=== PATIENT | female | born 1995 | race Caucasian/White ===

== ENCOUNTER 2023-04-04 07:29 | Outpatient (REF) | payer OTHER, SELFPAY ==
[2023-04-06 04:07] LABS: Syphilis Screen Nonreactive (Nonreactive)
[2023-04-06 05:13] LABS: HBsAGNum1 0.32 S/CO (0.00-0.99); HIV AB/AG Nonreactive (Nonreactive); HIV Num 1 0.14 S/CO (0.00-0.99); Hepatitis B Surface Antigen Negative (Negative); ~HepC Num1 0.04 S/CO (0.00-0.79); ~Hepatitis C Antibody Nonreactive (Nonreactive)
== END 2023-04-04 07:30 | disposition home or self-care (01) ==
LOC: HO.LAB 07:29
PROVIDERS: Visit Provider Physician Assistant
DX: Z11.4 Encounter for screening for human immunodeficiency virus [HIV] (principal); N89.8 Other specified noninflammatory disorders of vagina; Z20.2 Contact with and (suspected) exposure to infections with a predominantly sexual mode of transmission
CPT/HCPCS: 36415; 86780; 86803; 87340; 87389

== ENCOUNTER 2023-08-30 01:44 | Emergency (ER) | payer OTHER, SELFPAY ==
--- NOTE | ~2023-08-30 | XR_ITS ---
EXAMINATION: XR KNEE, LEFT CLINICAL INFORMATION: Pain, fall COMPARISON: None available. TECHNIQUE: Four views of the left knee. FINDINGS: Osseous alignment is anatomic. Joint spaces appear maintained. No acute fracture is seen. Small joint effusion suspected. XR/XR knee LT 4V IMPRESSION: No fracture identified. Small effusion suspected.
[2023-08-30 01:44] VITALS: BP 114/68; PULSE 106; RESP 16; O2SAT 98; BMI 46.6
[2023-08-30 02:08] VITALS: BP 109/85; PULSE 115; RESP 20; TEMP 36.9; O2SAT 97
--- NOTE | 2023-08-30 02:10 | PC.NURSE ---
Pt reports she was at bar and jumped from the bar to a table and knee went backwards. 4/10 left knee pain. Pt changed into hospital attire. Plan of care ongoing.
--- NOTE | 2023-08-30 02:27 | ED.LOWEXIN ---
HPI - Extremity Injury (Lower) General Chief Complaint: Extremity Injury, Lower Stated Complaint: lower leg inj Time Seen by Provider: 08/30/23 02:17 Source: patient Mode of arrival: ambulatory Limitations: no limitations History of Present Illness HPI Narrative: 28 yo female with prior ACL injury to R knee was dancing tonight on a table when she fell off and L knee hyperextended. She notes it hurts to walk. No prior injuries to this knee in past. MD complaint: knee injury Onset (ago): hour(s) (1) Injury: Left: knee Type of Injury: hyperextension Place: other Severity: moderate Relieving factors: immobilization Exacerbating factors: weight bearing and movement Context: fall Associated symptoms: swelling and unable to bear weight Other symptoms: none Treatments prior to arrival: cold therapy Related Data Allergies Allergy/AdvReac Type Severity Reaction Status Date / Time No Known Allergies Allergy Verified 08/30/23 01:53 Review of Systems Review of Systems: Constitutional : No Fever, No Chills ENT/Mouth : No Ear Pain, No Hoarseness, No sore throat Eyes: No Eye Pain, No Swelling, No Redness, No Foreign Body Cardiovascular : No Chest Pain, No SOB Respiratory : No Cough, No Dyspnea Gastrointestinal : No Nausea, No Vomiting, No Diarrhea, No abdominal Pain Genitourinary : No Dysuria, No Hematuria Musculoskeletal : positive joint pain, No Myalgias, pos Joint Swelling Skin : No Skin lacerations, No rash Neuro : No Weakness, No Numbness, No Loss of Consciousness, No Dizziness, No Headache All other systems reviewed and are negative FOR[facility]LY [facility], [facility] Past Medical History Attestation statement: The following information was validated with the patient. Medical History No pertinent past medical history Social History Social History (Updated 08/30/23 @ 02:46 by Chichi España DO) Patient Tobacco Use Status: Never used Tobacco Smoked in Last 30 Days: No Use of substances other than those prescribed or required for medical reasons: No Advance Directives: No Advance Directives Information Provided: No Physical Exam Vital Signs: Vital Signs: Last Vital Signs Temp 98.4 F 08/30/23 02:08 Pulse 115 H 08/30/23 02:08 Resp 20 08/30/23 02:08 BP 109/85 08/30/23 02:08 Pulse Ox 97 08/30/23 02:08 O2 Del Method Room Air 08/30/23 02:08 BMI result Body Mass Index 46.6 Appearance: Alert. Oriented X3. No acute distress. Eyes: Pupils equal, round and reactive to light. ENT: Pharynx normal. Neck: Normal inspection. Neck supple. CVS: Normal heart rate and rhythm. Pulses normal. Respiratory: No respiratory distress. Breath sounds normal. Abdomen: Soft and nontender. Skin: Skin warm and dry. Normal skin color. Normal skin turgor. Extremities: No lower extremity edema. L knee small effusion felt distal NV Intact bounding DP/PT pulses, SILT intact ttp along joint line medially and posterior ttp laxity felt posterior and anteriorly with testing though hard to test due to pain Neuro: Oriented X 3. No motor deficit. No sensory deficit. Medical Decision Making Medical Decision Making MDM Narrative: 28 yo female with fall injury and hyperextension injury to the L knee distal NV intact pulses intact no signs of popliteal artery injury at this time will obtain xrays, place in immobilizer and start on crutches refer to PCP vs orthopedics for further workup of internal structure of knee. Differential Diagnosis Differential Diagnoses: The differential diagnosis associated with the presentation includes ligamentous injury, meniscus injury Independent Interpretation I performed an independent interpretation of an: Plain X-Ray (no fracture) Radiology Impression Discussion of test interpretation with radiology: I have reviewed the radiologist's reading. Prescription Management I considered prescription management with: Pain Medication Procedures Orthopedic Splinting/Casting Injury #1: Side: left Lower Extremity Injury Location: knee Lower Extremity Immobilizer: knee immobilizer Other Orthopedic Equipment: crutches Discharge Plan Discharge Clinical Impression: Internal derangement of knee Qualifiers: Laterality: left Qualified Code(s): M23.92 - Unspecified internal derangement of left knee Patient Disposition: Home, Self-Care Instructions: Knee Sprain (ED) Additional Instructions: wear immobilizer, RICE - rest ice elevate use crutches can toe touch weight bear as tolerated call orthopedics or your primary care doctor for close follow up will need further imaging to look at internal structures of the knee Referrals: Arnulfo Patel PA-C [Physician Buildings And Grounds Superintendent] - (orthopedics will need to call to schedule appointment) Stand Alone Forms: Work/School Release
[2023-08-30 06:17] VITALS: BP 126/89; PULSE 100; RESP 12; TEMP 36.8; O2SAT 99
[2023-08-30 06:18] VITALS: BP 126/89; PULSE 100; RESP 12; TEMP 36.8; O2SAT 99
== END 2023-08-30 06:32 | disposition home or self-care (01) ==
PROVIDERS: Emergency Provider Emergency Medicine
DX: M23.92 Unspecified internal derangement of left knee (principal)
CPT/HCPCS: 73564; 99283; 99284

== ENCOUNTER 2023-09-04 07:52 | Outpatient (AMB) | payer OTHER, SELFPAY ==
--- NOTE | 2023-09-04 08:10 | MHC.OFFVIS ---
Intake Vital Signs 09/04/23 08:11 Height 5 ft 2 in Weight 255 lb BMI 46.6 Intake Visit Reasons: N/P Left Knee Sprain 08/28/23 Intake Note: Melanie rizzo 28 year old female presents today as a new patient for an ER follow up of left knee, DOI --. Patient reports that she fell off a table causing her to hyperextend her knee. She [place] [facility] [place] were taken and placed in a knee immobilizer. Information Interpreted: non-clinical & clinical Accompanied by: Self / Same As Patient Allergies No Known Allergies Allergy (Verified 09/04/23 08:12) Medication List - Last Reconciled 09/04/23 by Arnulfo Patel PA-C levonorgestrel (Mirena) intrauterine HPI N/P Left Knee Sprain 08/28/23 HPI Details 28-year-old female who presents to the office today for an ER follow-up of left knee injury after falling off a table causing her to hyperextend her knee, 08/28/23. She was seen at ED where x-rays were performed and she was placed in a knee immobilizer. She currently states she has pain in her left knee which makes her unable to bend her knee. She also c/o instability in her knee which makes her unable to weight bear on her leg. She also reports her knee gave out after she pivoted the wrong way about 2 days ago. She has a history of right knee acl reconstruction [facility] Medical History No pertinent past medical history Social History Patient Tobacco Use Status: Never used Tobacco Review of Systems Const All systems reviewed & are unremarkable except as noted in HPI and below Physical Exam Vital Signs: BMI result Body Mass Index 46.6 Const General: cooperative, healthy appearing, comfortable, no acute distress, well developed and alert Orientation/consciousness: patient oriented x3 HEENT Head: Yes normal to inspection, Yes normocephalic and Yes atraumatic Eyes General: appearance normal, both eyes and all related structures Resp Effort & Inspection: normal respiratory effort and able to speak in complete sentences Cardio Rate: regular rate Peripheral pulses: Peripheral pulses 2+ throughout GI Palpation (GI): Soft to palpation Skin Lesions: no lesions Rashes: no rashes Neuro General: patient oriented x3 Extrem Other: Left knee: Skin intact, no erythema or joint effusion. Medial retropatellar tenderness present. Full ROM with crepitus. Negative Kris?s. No ligamentous laxity. NVI. Results Reviewed Results Reviewed: Xrays were obtained in the office today and personally reviewed by me of the left knee show patella lateralization Assessment & Plan Assessment & Plan (1) Internal derangement of left knee: Code(s): M23.92 - Unspecified internal derangement of left knee Plan She was sent for an MRI of the left knee to further evaluate the ligamentous structures. She was fit for a knee brace while in the office today. She will continue to remain out of work but she will call me on Thursday to tell if she is ready to return to work without restrictions. She will follow-up once the scan is complete. Orders: Orders XR knee LT 1V Today M25.562 - Pain in left knee MR knee LT wo con Today M23.92 - Unspecified internal derangement of left knee Patient Instructions: Scribed for Arnulfo Patel PA-C, by Tito Nur medical record clerk, on 09/04/2023 at 8:00 AM EST. I, Arnulfo Patel PA-C, have personally reviewed and agree with the information entered by the scribe. Coding Level of Care Code New Pt Level 3 (66350) Diagnoses Internal derangement of left knee M23.92
[2023-09-04 08:11] VITALS: BMI 46.6
== END 2023-09-04 08:56 | disposition home or self-care (01) ==
PROVIDERS: Visit Provider Physician Assistant
DX: M23.92 Unspecified internal derangement of left knee (principal)
CPT/HCPCS: 99203

== ENCOUNTER 2023-09-04 07:52 | Outpatient (REF) | payer OTHER, SELFPAY ==
--- NOTE | ~2023-09-04 | XR_ITS ---
EXAMINATION: SUNRISE VIEW OF THE LEFT PATELLA CLINICAL INFORMATION: Pain in left knee. COMPARISON: August 30, 2023. TECHNIQUE: Single sunrise view of the left patella. FINDINGS: There is mild lateral asymmetric narrowing of the patellofemoral compartment with tiny lateral marginal osteophytes. XR/XR knee LT 1V IMPRESSION: Mild degenerative changes.
== END 2023-09-04 07:53 | disposition home or self-care (01) ==
LOC: HO.HOSX 07:52
PROVIDERS: Visit Provider Physician Assistant
DX: M23.92 Unspecified internal derangement of left knee (principal)
CPT/HCPCS: 73560

== ENCOUNTER 2023-09-12 08:47 | Outpatient (REF) | payer OTHER, SELFPAY ==
--- NOTE | ~2023-09-12 | MR_ITS ---
EXAMINATION: MR KNEE WITHOUT CONTRAST, LEFT CLINICAL INFORMATION: Left knee pain. COMPARISON: Radiographs 08/30/2023. TECHNIQUE: MRI of the knee without contrast was performed using routine sequences on a high-field scanner. FINDINGS: MENISCI: MEDIAL MENISCUS: At the periphery of the posterior horn and body junction there is an oblique tear extending to the meniscal undersurface. LATERAL MENISCUS: Tear of the posterior horn adjacent to the meniscal root with a 9 mm meniscal fragment displaced superiorly between the femoral condyle and PCL. LIGAMENTS: CRUCIATE: Anterior cruciate ligament is completely torn. The posterior cruciate ligament is intact. COLLATERAL: Edema extending along the MCL and fibular collateral ligament compatible with grade 1 sprains. EXTENSOR MECHANISM: Intact. ARTICULAR CARTILAGE/BONE: PATELLOFEMORAL COMPARTMENT: Normal. MEDIAL COMPARTMENT: Impaction fracture at the posterior aspect of the tibia. LATERAL COMPARTMENT: Impaction fractures of the tibia posteriorly and the femoral condyle anterolaterally with concavity and underlying marrow edema. JOINT FLUID AND BURSAE: Moderate hemarthrosis. MR/MR knee LT wo con IMPRESSION: 1. Complete ACL tear with impaction fractures of the lateral tibia posteriorly and the lateral femoral condyle anterolaterally. Moderate hemarthrosis. 2. Tear of the posterior horn of the lateral meniscus adjacent to the meniscal root with a 9 mm meniscal fragment displaced superiorly between the femoral condyle and PCL. 3. Oblique tear at the periphery of the posterior horn and body junction of the medial meniscus. 4. Grade 1 MCL and fibular collateral ligament sprains.
== END 2023-09-12 08:48 | disposition home or self-care (01) ==
LOC: HO.MRI 08:47
PROVIDERS: PCP Family Medicine; Visit Provider Physician Assistant
DX: M23.92 Unspecified internal derangement of left knee (principal)
CPT/HCPCS: 73721

== ENCOUNTER 2023-09-24 14:55 | Outpatient (AMB) | payer OTHER, SELFPAY ==
--- NOTE | 2023-09-24 15:14 | A.OFFVIS_ITS ---
Vital Signs 09/24/23 15:15 Height 5 ft 2 in Weight 255 lb BMI 46.6 Intake Visit Reasons: O/V left knee MRI rev per TM Intake Note: Melanie is a 28 year old female who presents today for an MRI review of the left knee. She jumped off a table in 6 heels on 08/30/23 and had increased pain after impact. She explains that the brace is helpful, she has pain going up and down the stairs. Pain increases with prolonged activity or prolonged rest. Hx of Left ACL surgery. Allergies No Known Allergies Allergy (Verified 09/04/23 08:12) HPI HPI O/V left knee MRI rev per TM: Details: This is a 28 yo F with a left knee injury sustained ! 4 weeks ago when she landed awkwardly after jumping off a table. She had immediate swelling and pain and comes in today stating she feels slightly better but still with swelling and giving way. She has been using a knee brace. She is active and enjoys hiking and walking. 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 Resp Other: No audible wheezing Effort & Inspection: normal respiratory effort Back/Spine/Pelvis Cervical Spine: normal cervical lordosis Skin General skin exam: no rashes or lesions noted Neuro General: no focal motor deficits Extrem Other: mild effusion + lateral steinmen's 2+ Anterior drawer/Lachamn's MCL stable Neg dial Psych Appearance: grossly normal and well kempt Mental Status: mental status grossly normal Speech and movement: Normal speech and movement present Affect: normal affect Attitude: cooperative Results Reviewed Results Reviewed: I personally reviewed the MR images. 1. Complete ACL tear with impaction fractures of the lateral tibia posteriorly and the lateral femoral condyle anterolaterally. Moderate hemarthrosis. 2. Tear of the posterior horn of the lateral meniscus adjacent to the meniscal root with a 9 mm meniscal fragment displaced superiorly between the femoral condyle and PCL. 3. Oblique tear at the periphery of the posterior horn and body junction of the medial meniscus. 4. Grade 1 MCL and fibular collateral ligament sprains. Assessment & Plan Assessment & Plan (1) ACL (anterior cruciate ligament) rupture: Code(s): S83.519A - Sprain of anterior cruciate ligament of unspecified knee, initial encounter Category: Medical Plan: This is a healthy but overweight 28 yo F with an acute ACL rupture and lateral meniscal root tear. I recommend ACL reconstruction. We discussed allo vs autograft and I recommend allograft. She will also require a lateral meniscus repair and I explained this to her and the post operative restrictions and expectations. I discussed the risks benefits and alternatives including but not limited to the risk of pain, infection, stiffness, need for further surgery as well as potential medical complications such as blood clots, pulmonary embolism and cardiac complications. SHe expressed understanding and we will proceed forward accordingly. (2) Acute lateral meniscal tear: Code(s): S83.289A - Other tear of lateral meniscus, current injury, unspecified knee, initial encounter Category: Medical Plan: Coding Level of Care Code Est Pt Level 4 (00139) Diagnoses ACL (anterior cruciate ligament) rupture S83.519A Acute lateral meniscal tear S83.289A
[2023-09-24 15:15] VITALS: BMI 46.6
== END 2023-09-24 15:49 | disposition home or self-care (01) ==
LOC: HO.HOS 14:55
PROVIDERS: PCP Family Medicine; Visit Provider Orthopaedic Surgery
DX: S83.512A Sprain of anterior cruciate ligament of left knee, initial encounter (principal); S83.282A Other tear of lateral meniscus, current injury, left knee, initial encounter
CPT/HCPCS: 99214

== ENCOUNTER → 2023-09-24 14:55 | Outpatient (BNVA) | payer OTHER, SELFPAY | PROVIDERS: PCP Family Medicine; Visit Provider Orthopaedic Surgery ==

== ENCOUNTER 2023-10-07 08:55 | Day surgery (SDC) | payer OTHER, SELFPAY ==
[2023-10-05 07:49] VITALS: BMI 46.6
--- NOTE | 2023-10-05 14:27 | P.CONAN_ITS ---
Documented by User: Jazmin Capps NP 10/05/23 14:29 HPI - Anesthesia Eval Consult details Narrative: 28yo F for Left ACL Repair Arthroscopic Revision, meniscus repair with allograft PMFSH Active Problems Active Problems: All Active Problems Acute lateral meniscal tear (Acute) ACL (anterior cruciate ligament) rupture (Acute) Internal derangement of left knee (Acute) Past Medical History Medical History (Updated 09/25/23 @ 10:01 by Sarkis Turcios MD) No pertinent past medical history Surgical History Surgical History (Updated 10/07/23 @ 09:32 by Dacia Ornelas RN) H/O knee surgery Social History Social History (Updated 09/24/23 @ 15:17 by Laurie Barnett CMA) Patient Tobacco Use Status: Current everyday Tobacco user Tobacco use type: Cigarette Cigarettes Per Day: 3 Use of substances other than those prescribed or required for medical reasons: No Are you DNR?: No Advance Directives: No Advance Directives Information Provided: Yes Current occupational status: employed Current occupation: [employer] Allergies Allergy/AdvReac Type Severity Reaction Status Date / Time No Known Allergies Allergy Verified 09/04/23 08:12 Home Medications ?Medication ?Instructions ?Recorded ?Confirmed ?Last Taken ?Type levonorgestrel 21 mcg/24 hours (8 intrauterine 09/04/23 09/04/23 Unknown History yrs) 52 mg intrauterine device (Mirena) Ozempic 10/07/23 09/24/23 History Exam Height,Weight and Vital Signs: Height 5 ft 2 in Weight 115.666 kg Assessment and Plan Assessment Anesthesia Assessment: Chart Reviewed Documented by User: Julia Thorpe MD 10/07/23 10:44 PMFSH Past Medical History Medical History (Updated 09/25/23 @ 10:01 by Sarkis Turcios MD) No pertinent past medical history Family History Family history of problems with anesthesia: No Surgical History Surgical History (Updated 10/07/23 @ 09:32 by Dacia Ornelas RN) H/O knee surgery History of Problems with Anesthesia: No Social History Social History (Updated 09/24/23 @ 15:17 by Laurie Barnett CMA) Patient Tobacco Use Status: Current everyday Tobacco user Tobacco use type: Cigarette Cigarettes Per Day: 3 Use of substances other than those prescribed or required for medical reasons: No Are you DNR?: No Advance Directives: No Advance Directives Information Provided: Yes Current occupational status: employed 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 [employer] Allergies Allergy/AdvReac Type Severity Reaction Status Date / Time No Known Allergies Allergy Verified 09/04/23 08:12 Home Medications ?Medication ?Instructions ?Recorded ?Confirmed ?Last Taken ?Type levonorgestrel 21 mcg/24 hours (8 intrauterine 09/04/23 09/04/23 Unknown History yrs) 52 mg intrauterine device (Mirena) Ozempic 10/07/23 09/24/23 History Exam Airway Mallampati Class: II TM Dist: >3cm Neck ROM: Full Heart: rrr Lungs: cta Assessment and Plan Assessment Anesthesia Assessment: Anesthesia Plan Discussed Final Anesthetic Review Family History of Problems with Anesthesia: No History of Problems with Anesthesia: No NPO: Yes ASA Class: II Final Preanesthetic Review: No Changes in Pt Med Stat, Meds/Allgs Chart Reviewed and Consent Obtained/Reviewed Patient Risk: Low Procedure Risk: Low Anesthetic Plan Anesthetic Plan: GA Disposition: Standard PACU
[2023-10-07] VITALS (8 sets, daily range): BP systolic 117–145; BP diastolic 72–88; PULSE 76–89; RESP 16–20; TEMP 36.2–36.3; O2SAT 93–100; BMI 47.4
[2023-10-07 09:51] LABS: UPreg QC Valid YES; Urine Pregnancy NEGATIVE (NEGATIVE)
--- NOTE | 2023-10-07 09:54 | MHC.SHP ---
Pre-Procedural Eval Section A - 24 Hr Update-Section A only Date of Service: 10/07/23 The patient is an INPATIENT: No Changes since office visit: No Cold of Flu in the past 2 weeks, No New Medical Problems, No Changes in Medication and No Patient answered all questions The patient has been examined within 24 hours of the surgical procedure. The History & Physical has been completed within 30 days and I have reviewed it.: Yes Section B - Complete if H&P > 30 days Chief Complaint: Other tear of medial meniscus, current injury, lef Allergies: Allergies Allergy/AdvReac Type Severity Reaction Status Date / Time No Known Allergies Allergy Verified 09/04/23 08:12 Plan I have reviewed the history and physical and performed a pertinent physical examination on my patient. No changes have occurred unless specified. Time Spent With Patient Time: Total time managing care of this patient today ____ minutes.
[2023-10-07] MEDS: Lactated Ringers 1,000 ML 100 ML IVCONT (10:04)
--- NOTE | 2023-10-07 12:45 | P.BOP_ITS ---
Brief Operative Note Date of Service: 10/07/23 Pre-op diagnosis: right ACL tear and lateral meniscal root tear Procedure: Right ACL recon with allograft Right knee lateral root meniscla tear Surgeon: Sarkis Turcios MD Anesthesia: GETA and regional Was an Quill Buncher And Sorter used for this Procedure?: Yes Quill Buncher And Sorter: Daisy Yang Estimated blood loss (mL): 20 Tourniquet time (min): 55 IV fluids (mL): 850 Pathology: none sent Condition: stable Disposition: PACU
[2023-10-07] MEDS: oxyCODONE HCl Immed Release 5 MG TABLET PO (13:19)
--- NOTE | 2023-10-22 11:31 | P.OP_ITS ---
Operative Note Operative Note Date of Service: 10/07/23 Narrative: Date of Service: 10/07/23 Pre-op diagnosis: right ACL tear and lateral meniscal root tear Procedure: Right ACL recon with allograft Right knee lateral root meniscal tear Surgeon: Sarkis Turcios MD Anesthesia: GETA and regional Was an Transportation Dispatcher used for this Procedure?: Yes Transportation Dispatcher: Daisy Yang Estimated blood loss (mL): 20 Tourniquet time (min): 55 IV fluids (mL): 850 Pathology: none sent Condition: stable Disposition: PACU Procedure in detail: Patient was brought to the operating room placed supine on the arthroscopic table and prepped and draped in standard sterile fashion. A time-out was called to identify proper site proper procedure proper surgeon and IV antibiotics per weight were administered. Under anesthesia she had a + pivot shift. I began by exsanguinating the limb and insufflating tourniquet to 300 mm Hg. Then made a standard anterolateral stab incision. The knee was insufflated with water and 30 degree arthroscope was placed. There was grade 1 fibrillations of the patella but overall suprapatellar pouch and the gutters were clean. I descended into the medial compartment where I made my far medial portal under direct visualization. There was an intact and normal medial meniscus. The root was intact. I then examined the lateral meniscus and the acl. There was a complete tear of the lateral root at its insertion with an otherwise normal meniscus. There were grade 0 changes in the tibial plateau. I then used a suture passer to pass two suture tapes through the free edge of the lateral meniscus. I then used a ringed currette to debride the root insertion site. I then drilled a spin through the anterolateral tibia through the footprint using the root repair guide set at 55deg. I passed a nitinol loop through this and retrieved the two limbs of suture tape attached to the meniscus. I then examined the notch where there was a + empty wall sign and an intact PCL. I debrided the stump and acl footprint and performed a limited notchplasty. I then, through a far AM portal and a 7mm behind the back guide, drilled a k-wire through the LFC with the knee in hyper-flexion. I measured the tunnel as a 31 and then after sizing the allograft on the back table drilled a 25 mm tunnel with a 10 mm reamer. The final 6 mm was drilled with a 4.5 reamer. I then pulled a suture through the femoral tunnel and turned my attention to the tibia. I did examine the femoral tunnel and was satisfied with the posterior wall and its location low and medial at the anatomic footprint. I placed my tibial drill guide in 55 deg and, through a anteromedial inc just lateral to the tibial tubercle placed a k-wire into the notch exiting just medial to the anterior horn insertion of the lateral meniscus. I then over-reamed with an 11 reamer. I cleaned the tunnels up with a shaver. On the back table I whip-stitched the allograft to fit through a 10 aperture and attached the femoral button to the looped end. I placed the graft on 15lbs of tension for 10 minutes. I then passed the allograft through the tibial tunnel and femoral tunnel and flipped the button. I cycled the knee about 10-15 cycles and then placed a tibial interference screw with the knee in hyper- extension while holding the graft taught. Once I was satisfied that the interference screw was buried I examined the ACL and the medial meniscus repair. The repair was stable and the ACL was not impinging and there was a negative pivot shift. I then returned to the root. I then brought the meniscus to its insertion site while flexed at 30 deg. The suture in the lateral meniscal root was then dunked into a footprint anchor anterolateral to the tibial tubercle. The rpepair was anatomic and I was satisfied. The ACL was examined and found to be intact and the lateral compartment also was without the need for inte rvention. I then removed all instrumentation and closed the portals with skin glue. 25 mL of 2% Marcaine with epinephrine was injected into the joint and the surrounding soft tissues. Patient was then placed in sterile dressing extubated brought recovery room stable condition. There were no known complications. I was satisfied with the extent of repair.
== END 2023-10-07 15:36 | disposition home or self-care (01) ==
PROVIDERS: Nurse Practitioner; PCP Family Medicine; Visit Provider Orthopaedic Surgery
PROC: (CPT 29882; principal; 2023-10-07 11:10)
DX: S83.281A Other tear of lateral meniscus, current injury, right knee, initial encounter (principal); S83.511A Sprain of anterior cruciate ligament of right knee, initial encounter; X58.XXXA Exposure to other specified factors, initial encounter; Y93.39 Activity, other involving climbing, rappelling and jumping off; Y92.9 Unspecified place or not applicable; Y99.8 Other external cause status; Z98.890 Other specified postprocedural states; F17.210 Nicotine dependence, cigarettes, uncomplicated
CPT/HCPCS: 29882; 29888; 81025; C1713; C1762; J0131; J0171; J0665; J0690; J1100; J2250; J2371; J2704; J3010

== ENCOUNTER → 2023-10-07 08:55 | Outpatient (BNV) | payer OTHER, SELFPAY | PROVIDERS: PCP Family Medicine; Visit Provider Orthopaedic Surgery | DX: S83.511A Sprain of anterior cruciate ligament of right knee, initial encounter (principal); S83.281A Other tear of lateral meniscus, current injury, right knee, initial encounter | CPT/HCPCS: 29882; 29888 ==

== ENCOUNTER 2023-10-15 08:39 | Outpatient (REF) | payer OTHER, SELFPAY ==
--- NOTE | ~2023-10-15 | XR_ITS ---
EXAMINATION: Left knee series CLINICAL INFORMATION: Pain left knee COMPARISON: X-rays of the left knee August 2023. MRI of the left knee August 2023 TECHNIQUE: Single AP view of the left knee FINDINGS: Postoperative changes related to anterior cruciate ligament reconstruction surgery. The medial lateral compartments are intact. No fracture identified. XR/XR knee LT 1V IMPRESSION: Postoperative changes related to anterior cruciate ligament reconstruction. Limited to single AP view
== END 2023-10-15 08:40 | disposition home or self-care (01) ==
LOC: HO.HOSX 08:39
PROVIDERS: Visit Provider Physician Assistant
DX: M25.562 Pain in left knee (principal)
CPT/HCPCS: 73560

== ENCOUNTER 2023-10-15 15:00 | Outpatient (AMB) | payer OTHER, SELFPAY ==
--- NOTE | 2023-10-15 15:10 | A.OFFVIS_ITS ---
Intake Visit Reasons: PO LT ACL 10/07/23 NE Intake Note: Melanie is a 28 year old female who presents today for a post op appointment s/p LT ACL 10/07/23 NE. Patient reports having some pain and discomfort off and on. Allergies No Known Allergies Allergy (Verified 10/15/23 15:11) HPI HPI PO LT ACL 10/07/23 NE: Details: 28-year-old female who presents in the office today 8 days status post right ACL reconstruction with allograft and right knee lateral root meniscal tear, which was performed on 10/07/[address] Turcios. While in the office today the patient reports some pain and discomfort intermittently. She confirms attending physical therapy this morning, 10/15/2023. Patient reports picking up the Percocet from the pharmacy today, 10/15/2023, which give her relief. She confirms the use of editable that keep her distracted. 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 No surrounding erythema or drainage. No signs of infection. Sutures intact. Able to dorsiflex and plantarflex. NVI. Assessment & Plan Assessment & Plan (1) S/P ACL reconstruction: Comment: Right ACL reconstruction with allograft and right knee lateral root meniscal tear 10/07/2023 . Code(s): Z98.890 - Other specified postprocedural states Category: Surgical Plan Ms. Jimenez is a 28-year-old female who presents in the office today 8 days status post right ACL reconstruction with allograft and right knee lateral root meniscal tear, which was performed on 10/07/[address] Turcios. While in the office today the patient reports some pain and discomfort intermittently. She confirms attending physical therapy this morning, 10/15/2023. She reports having a burning sensation with numbness in the right knee. She denies cramping in the right lower extremity. Patient reports picking up the Percocet from the pharmacy today, 10/15/2023, which give her relief. She confirms the use of editable that Sutures were removed and steri-stripes were applied. The patient was placed back into the ACL brace in the office today. I recommend the use of editable marijuana over smoking due to the effects on healing from vasoconstriction the patient understands and accepts. Follow up will be in [address] Turcios, or sooner if needed. Orders: Orders PT Evaluation and Treatment Today M23.92 - Unspecified internal derangement of left knee, S83.289A - Other tear of lateral meniscus, current injury, unspecified knee, initial encounter, S83.519A - Sprain of anterior cruciate ligament of unspecified knee, initial encounter Patient Instructions: Scribed by Jennifer Segundo medical cost consultant, for Daisy Yang PA-C on 10/15/2023 at 3:22 pm, EST. Coding Level of Care Code Global (25384) Diagnoses S/P ACL reconstruction Z98.890
== END 2023-10-15 15:47 | disposition home or self-care (01) ==
PROVIDERS: PCP Family Medicine; Visit Provider Physician Assistant
DX: S83.512D Sprain of anterior cruciate ligament of left knee, subsequent encounter (principal)
CPT/HCPCS: 99024

== ENCOUNTER 2023-11-06 12:24 | Outpatient (AMB) | payer OTHER, SELFPAY ==
--- NOTE | 2023-11-06 12:45 | MHC.OFFVIS ---
Intake Visit Reasons: PO LT ACL 10/07/23 NE-wound check Intake Note: Melanie is a 28 year old female who presents to the office today for a PO Lt ACL 10/07/23 wound check. Allergies No Known Allergies Allergy (Verified 11/06/23 12:45) HPI HPI PO LT ACL 10/07/23 NE-wound check: Details: 28-year-old female who returns to the office today for post-op wound check s/p left ACL reconstruction, 10/07/[address] Turcios. She states she has skin breakdown at the lateral aspect of her knee. She denies any redness or pus. She has no other concerns today. 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 No purulence or surrounding erythema. Assessment & Plan Assessment & Plan (1) S/P ACL reconstruction: Comment: Right ACL reconstruction with allograft and right knee lateral root meniscal tear 10/07/2023 . Code(s): Z98.890 - Other specified postprocedural states Category: Surgical Plan Patient removed the scab in the office today. I did take a curette to scab the area to promote fresh bleeding and tissue growth. I did show her wet to dry dressing changes in the office and she will continue to perform it twice a day till I see her back in 1 week. If she has any redness, purulence or increased pain over the next few days, she will contact the office for antibiotics, otherwise follow-up as planned. Patient Instructions: Scribed for Arnulfo Patel PA-C, by Tito Nur medical imaging tech, on 11/06/2023 at 12:30 PM EST.? I, Arnulfo Patel PA-C, have personally reviewed and agree with the information entered by the scribe. Coding Level of Care Code Global (41396) Diagnoses S/P ACL reconstruction Z98.890
== END 2023-11-06 13:17 | disposition home or self-care (01) ==
LOC: HO.HOS 12:24
PROVIDERS: PCP Family Medicine; Visit Provider Physician Assistant
DX: Z98.890 Other specified postprocedural states (principal)
CPT/HCPCS: 99024

== ENCOUNTER → 2023-11-06 12:24 | Outpatient (BNVA) | payer OTHER, SELFPAY | PROVIDERS: PCP Family Medicine; Visit Provider Physician Assistant ==

== ENCOUNTER 2023-11-12 13:58 | Outpatient (AMB) | payer OTHER, SELFPAY ==
--- NOTE | 2023-11-12 14:21 | A.OFFVIS_ITS ---
Intake Visit Reasons: PO LT ACL 10/07/23 NE Intake Note: Melanie is a 28 year old female who presents to the office today for a PO Lt ACL 10/07/23, she was last seen with arnulfo for a wound check on 11/06/23 where scab was removed and a curette was used to promote fresh bleeding and tissue growth. She was instructed on how to perform wet to dry dressing changes bid. She has been preforming the dressing Allergies No Known Allergies Allergy (Verified 11/06/23 12:45) HPI HPI PO LT ACL 10/07/23 NE: Details: Patient presents to the office today for a wound check and 6 week f/u s/p left knee ACL reconstruction with lateral meniscal root repair. She was last seen in the office on 11/06/23 with Arnulfo Patel PA-C for a wound check of the lateral incision site. A debridement was performed in the office and she was instructed to do wet to dry dressing changes. She reports improvement of the wound and denies any purulent discharge. 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 No purulence or surrounding erythema. No signs of infection. NVI. Assessment & Plan Assessment & Plan (1) S/P ACL reconstruction: Comment: Right ACL reconstruction with allograft and leftknee lateral root meniscal tear 10/07/2023 . Code(s): Z98.890 - Other specified postprocedural states Category: Surgical (2) Acute lateral meniscal tear: Code(s): S83.289A - Other tear of lateral meniscus, current injury, unspecified knee, initial encounter Category: Medical (3) ACL (anterior cruciate ligament) rupture: Code(s): S83.519A - Sprain of anterior cruciate ligament of unspecified knee, initial encounter Category: Medical Plan Patient presents to the office today for a wound check and 6 week f/u s/p left knee ACL reconstruction with lateral meniscal root repair. She was last seen in the office on 11/06/23 with Arnulfo Patel PA-C for a wound check of the lateral incision site. A debridement was performed in the office and she was instructed to do wet to dry dressing changes. She reports improvement of the wound and denies any purulent discharge. Dr. Turcios was also available to see the patient with in the office today, the wound was again debrided while in the office today and a dry dressing was placed over the area. She will continue with dry dressing changes and attend physical therapy for the meniscal root repair protocol. She will followup in 6 weeks, sooner if needed. Coding Level of Care Code Global (68195) Diagnoses S/P ACL reconstruction Z98.890 Acute lateral meniscal tear S83.289A ACL (anterior cruciate ligament) rupture S83.519A
== END 2023-11-12 14:49 | disposition home or self-care (01) ==
PROVIDERS: PCP Family Medicine; Visit Provider Orthopaedic Surgery
DX: Z98.890 Other specified postprocedural states (principal); S83.289A Other tear of lateral meniscus, current injury, unspecified knee, initial encounter; S83.519A Sprain of anterior cruciate ligament of unspecified knee, initial encounter
CPT/HCPCS: 99024

== ENCOUNTER → 2023-11-12 13:58 | Outpatient (BNVA) | payer OTHER, SELFPAY | PROVIDERS: PCP Family Medicine; Visit Provider Orthopaedic Surgery ==

== ENCOUNTER 2023-12-04 07:56 | Outpatient (REF) | payer OTHER, SELFPAY | END 2023-12-04 07:57 | disposition home or self-care (01) | LOC: HO.HOSX 07:56 | PROVIDERS: Visit Provider Orthopaedic Surgery | DX: Z13.89 Encounter for screening for other disorder (principal) ==

== ENCOUNTER 2023-12-14 08:58 | Outpatient (AMB) | payer OTHER, SELFPAY ==
--- NOTE | 2023-12-14 09:02 | A.OFFVIS_ITS ---
Intake Visit Reasons: PO - LT ACL 10/07/23 NE Intake Note: Melanie is a 28 year old female who presents today for a post operative visit s/p LT ACL on 10/07/23 with NE. Patient reports a few weeks ago she slipped in her shower and tweaked her knee, states intermittent swelling since. She is concerned a green drainage from incision. She continues attending PT twice a week. Allergies No Known Allergies Allergy (Verified 12/14/23 09:12) Medication List - Last Reconciled 12/14/23 by Arnulfo Patel PA-C levonorgestrel (Mirena) intrauterine morphine ER (MS Contin) 15 mg PO Q12H 3 days oxycodone-acetaminophen 5-325 mg (Percocet) 1 tab PO Q4-6H PRN 7 days [Ozempic ] HPI HPI PO - LT ACL 10/07/23 NE: Details: 28-year-old female who returns to the office today for post-op left ACL reconstruction, 10/07/[address] Turcios. She states she slipped in her shower and ?tweaked? her knee a few weeks ago and has been having intermittent swelling since. She also reports a green drainage from her incision site as well as instability in her knee. She continues to work on physical therapy as instructed. 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 She does have a retained suture along the medial portal site over the tibia. No active drainage. She has full ROM, is able to activate a SLR and has good quad activation. Trace swelling over the LLE. Pulses are present. NVI. Assessment & Plan Assessment & Plan (1) S/P ACL reconstruction: Comment: Right ACL reconstruction with allograft and leftknee lateral root meniscal tear 10/07/2023 . Code(s): Z98.890 - Other specified postprocedural states Category: Surgical (2) Acute lateral meniscal tear: Code(s): S83.289A - Other tear of lateral meniscus, current injury, unspecified knee, initial encounter Category: Medical (3) ACL (anterior cruciate ligament) rupture: Code(s): S83.519A - Sprain of anterior cruciate ligament of unspecified knee, initial encounter Category: Medical Plan She will continue with physical therapy to work on ROM, quad strengthening, gait training and proprioceptive training. I explained that she can begin to ween out of her brace when her quad function is strong. I did give her a playmaker hinge knee brace which she will wear when she is weened out of her ACL brace as she experiences some weakness from a recent incident in shower which is causing her discomfort. At this time there is nothing more than investigating for a re- rupture of the tendon however over the next 6 weeks, if she has worsening symptoms such as swelling or frequent instability, we can further investigate this. She will remain out of work till I see her back in [address] Turcios, sooner if needed. I did recommend warm water compress and bactrim to the incision with the retained suture, she will contact me next week if this worsens. Medications: New sulfamethoxazole-trimethoprim 800-160 mg (Bactrim DS) 1 tab PO BID 20 tabs 0RF suture abscess 10 days Patient Instructions: Scribed for Arnulfo Patel PA-C, by Tito Nur behavioral medical director, on 12/14/2023 at 9:00 AM EST.? I, Arnulfo Patel PA-C, have personally reviewed and agree with the information entered by the scribe. Coding Level of Care Code Global (46436) Diagnoses S/P ACL reconstruction Z98.890 Acute lateral meniscal tear S83.289A ACL (anterior cruciate ligament) rupture S83.519A
== END 2023-12-14 09:34 | disposition home or self-care (01) ==
PROVIDERS: PCP Family Medicine; Visit Provider Physician Assistant
DX: Z98.890 Other specified postprocedural states (principal); S83.289A Other tear of lateral meniscus, current injury, unspecified knee, initial encounter; S83.519A Sprain of anterior cruciate ligament of unspecified knee, initial encounter
CPT/HCPCS: 99024

== ENCOUNTER → 2023-12-14 08:58 | Outpatient (BNVA) | payer OTHER, SELFPAY | PROVIDERS: PCP Family Medicine; Visit Provider Physician Assistant ==

== ENCOUNTER 2023-12-24 14:15 | Outpatient (AMB) | payer OTHER, SELFPAY ==
--- NOTE | 2023-12-24 14:18 | A.OFFVIS_ITS ---
Intake Visit Reasons: PO LT ACL 10/07/23 NE Intake Note: Melanie is a 28 year old female who presents today with a knee brace post operatively S/P Left ACL Reconstruction 10/07/23. Patient reports her ROM is good. She says she is about past 90 degrees now in PT but needs to work on strength. She has intermittent pain if she steps weird or isn't wearing her brace. She had a fall at the end of October where she slipped out the shower, she caught herself on the knee and felt like she landed oddly. She notice swelling in her ankle and foot after this fall. She had an appointment for this fall but missed it due to her swelling going down. A concern she has today is when she would return to work. Allergies No Known Allergies Allergy (Verified 12/24/23 14:19) HPI HPI PO LT ACL 10/07/23 NE: Details: Melanie is a 28 year old female who presents today with a knee brace post operatively S/P Left ACL Reconstruction 10/07/23. Patient reports her ROM is good. She says she is about past 90 degrees now in PT but needs to work on strength. She has intermittent pain if she steps weird or isn't wearing her brace. She had a fall at the end of October where she slipped out the shower, she c aught herself on the knee and felt like she landed oddly. She notice swelling in her ankle and foot after this fall. She had an appointment for this fall but missed it due to her swelling going down. 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 Code(s): Z98.890 - Other specified postprocedural states Category: Surgical Plan: Continue strengthening with PT No work for 6 weeks f/u 6 weeks Coding Level of Care Code Global (94623) Diagnoses S/P ACL reconstruction Z98.890
== END 2023-12-24 14:58 | disposition home or self-care (01) ==
PROVIDERS: PCP Family Medicine; Visit Provider Orthopaedic Surgery
DX: Z98.890 Other specified postprocedural states (principal)
CPT/HCPCS: 99024

== ENCOUNTER → 2023-12-24 14:15 | Outpatient (BNVA) | payer OTHER, SELFPAY | PROVIDERS: PCP Family Medicine; Visit Provider Orthopaedic Surgery ==

== ENCOUNTER 2024-01-04 15:01 | Outpatient (AMB) | payer OTHER, SELFPAY ==
--- NOTE | 2024-01-04 15:13 | MHC.PC.OV ---
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 Intake Note: new patient , patient would like to get checked for pcos,and hs [ cystic break outs] adhd,depression and anxiety weight loss,a1c check pt has family hx of diabetes , Is last menstrual period known: No (mirana control) Post menopausal: No Patient : No Allergies No Known Allergies Allergy (Verified 01/04/24 15:23) Medication List - Last Reconciled 01/04/24 by Micah Harrison MD levonorgestrel (Mirena) intrauterine Tobacco use date assessed: 01/04/24 Dental Screening Dental Screen Date: 01/04/24 Did you have a dental visit in the last 12 months?: No Did you have a dental problem in the last 6 months where you did not have access to dental care?: No Was dental information given to patient?: Patient has dentist 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 ?? Prior PCP:? [facility] Last office visit/CPE:?1 Acute issue(s):? Pt has multiple concerns including: pcos,and hs [ cystic break outs] - Hirsutism, Weight, Acne ? adhd - difficulty concentrating, depression and anxiety - Pt wonders if she is Bipolar as well weight loss family hx of diabetes , ?? PMHx:?R& L ACL tear. SurgHx:? L ACL & Meniscus repair. R Knee ACL FHx:? Aunt & GM with DM. SocHx:? < 1/4 PPD. EtOH Socially 1-2 dr. 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 1. Little interest or pleasure in doing things: not at all 2. Feeling down, depressed, or hopeless: several days 3. Trouble falling or staying asleep, or sleeping too much: nearly every day 4. Feeling tired or having little energy: several days 5. Poor appetite or overeating: more than half the days 6. Feeling bad about yourself - or that you are a failure or have let yourself or your family down: several days 7. Trouble concentrating on things, such as reading the newspaper or watching television: more than half the days 8. Moving or speaking so slowly that other people could have noticed. Or the opposite - being so fidgety or restless that you have been moving around a lot more than usual: not at all 9. Thoughts that you would be better off or of hurting yourself in some way: not at all (pt states once in a while not very often ) Total score: 10 Depression Screening Interpretation: Positive Depression Screening Done: Yes 75286 - PHQ-9 Billing: Yes Source: Developed by Drs. Ming Frost, Corinne Bae, Jeremias Ramey and colleagues, with an educational kishore from [employer]. Thrive Questionnaire Date Thrive assessed: 01/04/24 I am a: Patient What is your living situation today?: I have a steady place to live Within the past 12 months, did the food you bought not last and you didn't have the money to get more?: Never true Within the past 12 months, did you worry whether your food would run out before you got money to buy more?: Never true Do you have trouble paying for medicines?: No Do you have trouble getting transportation to medical appointments?: No Do you have trouble paying your heating and electricity bill?: No Do you have trouble taking care of your child, family member or friend?: No Do you have trouble with day-to-day activities such as bathing, preparing meals, shopping, managing finances, etc.?: No Are you currently unemployed and looking for a job?: No Are you interested in more education?: Yes Please select the resources that you would like help with: Education Currently or been in a relationship where the following occur: No concerns reported THRIVE Score: 0 AUDIT C Alcohol Use Questionnaire (AUDIT-C) 1. How often do you have a drink containing alcohol?: 2-4 times a month 2. How many drinks containing alcohol do you have on a typical day when you are drinking?: 1 or 2 3. How often do you have six or more drinks on one occasion?: Less than monthly Total Score: 3 Score Reviewed/Action Taken: Yes CHINMAY-7 AMB Questionnaire CHINMAY-7 Date CHINMAY - 7 assessed: 01/04/24 Feeling nervous, anxious, or on edge: 1 = Several days Not being able to stop or control worryin = Not at all Worrying too much about different things: 0 = Not at all Trouble relaxin = Not at all Being so restless that it is hard to sit still: 1 = Several days Becoming easily annoyed or irritable: 2 = More than half the days Feeling afraid as if something awful might happen: 0 = Not at all Total CHINMAY-7 score (0-4 normal; 5-9 mild; 10-14 moderate; 15-21 severe): 4 Source: Developed by Drs. Ming Frost, Corinne Bae, Jeremias Ramey and colleagues, with an educational kishore from [employer]. CHINMAY-7 Assessment Billing CHINMAY-7 Assessment Tool: CHINMAY-7 Assessment 79726 Review of Systems Const Denies chills, Denies fatigue, Denies fever(s), Denies headache(s) and Denies weakness ENT Denies dizziness and Denies headache(s) Card Denies chest pain, Denies lightheadedness, Denies dyspnea and Denies other (Palpitations) Resp Denies cough, Denies dyspnea, Denies wheezing and Denies other ( shortness of breath) Musc Denies numbness and Denies tingling Neuro Denies dizziness, Denies headache(s), Denies numbness, Denies tingling, Denies paresthesias and Denies weakness Psych Reports anxiety and Reports depression Endo Denies fatigue Aller/Immun Denies wheezing Physical exam (Primary Care) Vital Signs: Last Vital Signs Temp 98.2 F 01/04/24 15:25 Pulse 78 01/04/24 15:25 Resp 20 01/04/24 15:25 BP 100/80 01/04/24 15:25 Pulse Ox 98 01/04/24 15:25 Oxygen Delivery Method Room Air 01/04/24 15:25 BMI result Body Mass Index 48.6 Tobacco/Smoking Status: Tobacco use Status Tobacco use date assessed 01/04/24 01/04/24 15:27 Patient Tobacco Use Status Current everyday Tobacco 01/04/24 15:23 Tobacco use type Cigarette 01/04/24 15:23 e-Cigarette/Vaping Use Never Used 01/04/24 15:27 PHQ-9: PHQ-9 Score PHQ-9: Total score 10 01/04/24 15:27 Depression Screening Interpretation: Positive Thrive Assessment: Date of Thrive Assessment Date Thrive assessed 01/04/24 01/04/24 15:27 Currently or been in a relationship where the following occur: No concerns reported Const General: no acute distress and well developed Nutritional Appearance: well nourished Orientation/consciousness: patient oriented x3 [facility] Head: Yes normocephalic and Yes atraumatic Eyes General: appearance normal, both eyes and all related structures Pupils: Equal, round and reactive pupils present EOM: EOMs intact bilaterally Resp Effort & Inspection: normal respiratory effort Auscultation: clear to auscultation bilaterally Cardio Rate: regular rate Rhythm: regular rhythm Heart sounds: S1 normal heart sound present, S2 normal heart sound present, no gallops, no murmurs and no rubs Neuro General: patient oriented x3 and gait normal Cranial nerves: Yes Equal, round and reactive pupils present Psych Affect: normal affect Assessment and Plan Assessment & Plan (1) Depression with anxiety: Code(s): F41.8 - Other specified anxiety disorders Plan: Depression?and?anxiety.??Patient?also?notes?that?she?is?concerned?about?bipolar?disorder. Will?give?her?a?trial?of?bupropion?which?she?has?taken?in?the?past?without?adverse?effects?though?she?says?she?did?forget?to?continue?it. This?may?also?help?with?smoking?cessation?and?concentration. She?has?an appointment?with?a?new?therapist?and?psychiatrist?and?she?can?follow-up?with?them?subsequently. (2) Morbid obesity: Code(s): E66.01 - Morbid (severe) obesity due to excess calories Plan: Check?lab We?will?continue?to?follow-up?in?address?this?in?the?future (3) Difficulty concentrating: Code(s): R41.840 - Attention and concentration deficit Plan: As?above,?patient?has?an?appointment?with?psychiatrist?and?therapist We?can?try?some?bupropion (4) Smoker: Code(s): F17.200 - Nicotine dependence, unspecified, uncomplicated Plan: Smoking?less?than?a?quarter?pack?per?day Advised?cessation As?above,?can?trial?bupropion Will?follow (5) Family history of diabetes mellitus: Code(s): Z83.3 - Family history of diabetes mellitus Plan: Check?labs?including?A1c (6) H/O knee surgery: Comment: RIGHT KNEE Code(s): Z98.890 - Other specified postprocedural states Plan: Stable (7) Hirsutism: Code(s): L68.0 - Hirsutism Plan: Possible?PCOS Checking?labs?including?testosterone?levels?and?A1c May?need?ultrasound.??May?need?referral?to?physician liaison?or?endocrine (8) Laboratory exam ordered as part of routine general medical examination: Code(s): Z00.00 - Encounter for general adult medical examination without abnormal findings Plan: Check?labs Orders: Orders Lipid Panel Today Z00.00 - Encounter for general adult medical examination without abnormal findings Complete Blood Count Auto Diff Today Z00.00 - Encounter for general adult medical examination without abnormal findings Microalbumin, Random (w Creat) Today I10 - Essential (primary) hypertension Hemoglobin A1c Today R73.01 - Impaired fasting glucose Follicle Stimulating Hormone Today L68.0 - Hirsutism Lutenizing Hormone Today L68.0 - Hirsutism Comprehensive [place]. Panel Fast Today Z00.00 - Encounter for general adult medical examination without abnormal findings TSH reflex Free T4 Today Z00.00 - Encounter for general adult medical examination without abnormal findings UA and rflx microscopic Today Z00.00 - Encounter for general adult medical examination without abnormal findings Testosterone, Free/Total Today L68.0 - Hirsutism Coding Level of Care Code New Pt Level 3 (14729) Diagnoses Depression with anxiety F41.8 Morbid obesity E66.01 Difficulty concentrating R41.840 Smoker F17.200 Family history of diabetes mellitus Z83.3 H/O knee surgery Z98.890 Hirsutism L68.0 Laboratory exam ordered as part of routine general medical examination Z00.00 Additional Codes CHINMAY-7 Assessment Billing - CHINMAY-7 Assessment Tool: CHINMAY-7 Assessment 16525 ([id number])
[2024-01-04 15:25] VITALS: BP 100/80; PULSE 78; RESP 20; TEMP 36.8; O2SAT 98; BMI 48.6
== END 2024-01-04 16:06 | disposition home or self-care (01) ==
PROVIDERS: Visit Provider Family Medicine
DX: F41.8 Other specified anxiety disorders (principal); E66.01 Morbid (severe) obesity due to excess calories; Z68.42 Body mass index [BMI] 45.0-49.9, adult; R41.840 Attention and concentration deficit; F17.200 Nicotine dependence, unspecified, uncomplicated; L68.0 Hirsutism; Z83.3 Family history of diabetes mellitus; Z98.890 Other specified postprocedural states
CPT/HCPCS: 96127; 99203

== ENCOUNTER 2024-01-08 14:27 | Outpatient (REF) | payer OTHER, SELFPAY ==
[2024-01-08 17:44] LABS: MANUAL DIFF FLAG NO
[2024-01-08 17:48] LABS: Appearance Urine Clear; Color Urine Yellow; Glucose Urine UA Negative (Negative); Leukocyte Esterase Urine Trace (Negative); Nitrite Urine Negative (Negative); UMIC TRIGGER UA YES; Urine Blood Negative (Negative); Urine Ketones Negative (Negative); Urine Protein Negative (Neg-Trace)
[2024-01-08 17:56] LABS: Estimated Average Glucose 97 mg/dL
[2024-01-08 18:03] LABS: Alanine Aminotransferase 21 U/L (0-31); Albumin Level 4.1 g/dL (3.5-5.0); Alkaline Phosphatase 141 U/L (39-117); Anion Gap 10 (12-20); Aspartate Amino Transferase 14 U/L (5-31); Bilirubin Total 0.2 mg/dL (0.0-1.0); Blood Urea Nitrogen 11 mg/dL (9-16); Calcium 9.7 mg/dL (8.4-10.2); Carbon Dioxide 28 mmol/L (22-29); Chloride 106 mmol/L (96-108); Cholesterol 164 mg/dL (<200); Estimated Glomerular Filt Rate > 60; Glucose Fasting 81 mg/dL (60-99); HDL Cholesterol 47 mg/dL (>40); LDL Cholesterol Calculated 105 mg/dL (<100); Potassium 4.8 mmol/L (3.3-5.1); Sodium 139 mmol/L (135-145); Total Protein 6.7 g/dL (6.5-8.0); Triglycerides 62 mg/dL (<150)
[2024-01-08 18:22] LABS: Basophils Absolute Auto 0.1 X10*3/uL (0.0-0.2); Basophils Percent Auto 0.5 % (0-2); Eosinophils Absolute Auto 0.2 X10*3/uL (0.0-0.4); Eosinophils Percent Auto 1.4 % (0-4); Hematocrit 43.6 % (37.0-47.0); Hemoglobin 13.7 g/dl (12.0-16.0); Imm Gran Abs Auto 0.04 X10*3/uL (0.00-0.03); Imm Gran Pct Auto 0.4 % (0.0-0.4); Lymphocytes Absolute Auto 3.1 X10*3/uL (1.2-4.9); Mean Corpuscular HGB Conc 31.4 g/dl (31.0-35.0); Mean Corpuscular Hemoglobin 25.8 pg (27.0-33.0); Mean Platelet Volume 10.8 fL (9.4-12.3); Monocytes Absolute Auto 0.7 X10*3/uL (0.1-1.2); Monocytes Percent Auto 6.2 % (2-11); Neutrophils Percent Auto 63.5 % (45-73); Platelet Count 385 X10*3/uL (160-400); Red Blood Count 5.32 X10*6/uL (4.20-5.50); Red Cell Distribution Width 13.9 % (11.0-16.0); White Blood Count 10.9 X10*3/uL (4.8-10.8)
[2024-01-08 18:25] LABS: Creatinine Urine 124.17 mg/dL; Microalbumin Urine < 5.0 mg/L
[2024-01-08 18:32] LABS: Bacteria Urine Trace (None Seen); Hyaline Casts Urine 0-2 /LPF (0-2); RBC Urine 0-2 /HPF (0-2); WBC Urine 0-5 /HPF (0-5)
[2024-01-09 09:24] LABS: Follicle Stimulating Hormone 6.6 mIU/mL; Lutenizing Hormone 9.5 mIU/mL
[2024-01-15 11:38] LABS: Testosterone, Free 8.2 pg/mL (0.1-6.4); Testosterone, Total 44 ng/dL (2-45)
== END 2024-01-08 14:28 | disposition home or self-care (01) ==
LOC: HO.WFDLDS 14:27
PROVIDERS: Visit Provider Family Medicine
DX: Z00.00 Encounter for general adult medical examination without abnormal findings (principal); R73.01 Impaired fasting glucose; L68.0 Hirsutism; I10 Essential (primary) hypertension
CPT/HCPCS: 36415; 80053; 80061; 81001; 82570; 83001; 83002; 83036; 84402; 84403; 84443; 85025

== ENCOUNTER 2024-02-04 10:00 | Outpatient (RCR) | payer OTHER, SELFPAY | END 2024-03-22 11:18 | disposition home or self-care (01) | LOC: HO.PT 10:00 | PROVIDERS: PCP Family Medicine; Visit Provider Orthopaedic Surgery | DX: S83.511A Sprain of anterior cruciate ligament of right knee, initial encounter (principal) | CPT/HCPCS: 97110; 97116; 97140; 97161; 97530 ==

== ENCOUNTER 2024-02-04 11:00 | Outpatient (AMB) | payer OTHER, SELFPAY ==
--- NOTE | 2024-02-04 11:02 | MHC.OFFVIS ---
Intake Visit Reasons: PO - LT ACL 10/07/23 NE Intake Note: Melanie is a 28 year old female who presents today for a post operative appointment S/P Left ACL Reconstruction 10/07/23. Anticipated RTW date for 02/11/24. Patient reports that she is doing well, no concerns. She is looking to return to work this weekend. Allergies No Known Allergies Allergy (Verified 02/04/24 11:03) HPI HPI PO - LT ACL 10/07/23 NE: Details: Four months postop doing well. 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 Code(s): Z98.890 - Other specified postprocedural states Category: Surgical Plan: Lateral root tear with repair and ACL reconstruction. Caution with hyperflexion and no cutting or twisting activities. Continue aggressive home PT. Follow up in 2 months. Coding Level of Care Code Est Pt Level 3 (95917) Diagnoses S/P ACL reconstruction Z98.890
== END 2024-02-04 11:33 | disposition home or self-care (01) ==
PROVIDERS: PCP Family Medicine; Visit Provider Orthopaedic Surgery
DX: S83.512D Sprain of anterior cruciate ligament of left knee, subsequent encounter (principal); S83.282D Other tear of lateral meniscus, current injury, left knee, subsequent encounter
CPT/HCPCS: 99213

== ENCOUNTER → 2024-02-04 11:00 | Outpatient (BNVA) | payer OTHER, SELFPAY | PROVIDERS: PCP Family Medicine; Visit Provider Orthopaedic Surgery ==

== ENCOUNTER 2024-05-05 15:02 | Outpatient (AMB) | payer OTHER, SELFPAY ==
[2024-05-05 15:04] VITALS: BMI 48.6
--- NOTE | 2024-05-05 15:04 | MHC.OFFVIS ---
Vital Signs 05/05/24 15:04 Height 5 ft 1 in Weight 257 lb BMI 48.6 Intake Visit Reasons: OV - LT ACL 10/07/23 NE Intake Note: Melanie is a 29 year old female who presents today for a follow up appointment of her right knee s/p Right Knee ACL Reconstruction w/ Allograft & Lateral Meniscus Repair 10/07/23. At her last visit in January she was instructed to do no cutting or twisting activities. She has returned to work [employer]. States she started to take a water pill due to increase swelling but is better now. Also mentioned she started to take wellbutrin. Allergies No Known Allergies Allergy (Verified 05/05/24 15:08) HPI HPI OV - LT ACL 10/07/23 NE: Details: Melanie is doing well. No problems. The not exercising as much as I would like but she feels well and she has returned to full activity at work. HPI Comments Details: Melanie is a 29 year old female who presents today for a follow up appointment of her right knee s/p Right Knee ACL Reconstruction w/ Allograft & Lateral Meniscus Repair 10/07/23. At her last visit in January she was instructed to do no cutting or twisting activities. She has returned to work [employer]. States she started to take a water pill due to increase swelling but is better now. Also mentioned she started to take wellbutrin. 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 Stable Lashell's. No effusion. Assessment & Plan Assessment & Plan (1) S/P ACL reconstruction: Onset Date: 10/07/23 Comment: Right ACL reconstruction with allograft and leftknee lateral root meniscal tear 10/07/2023 . Code(s): Z98.890 - Other specified postprocedural states Category: Surgical Plan: Status post ACL with root repair doing well. Continue activity as tolerated. I strongly recommend a exercise. He may follow up in 3 months to check in but a more important thing is that she get on a stationary bike and engage in strengthening activity. Coding Level of Care Code Est Pt Level 3 (60208) Diagnoses S/P ACL reconstruction Z98.890
--- OUTSIDE RECORDS SUMMARY | 2024-05-11 04:14 | XMS_ITS ---
[facility] Name [facility] Organization Unknown History of Medication Use Medication Directions Dispensed Refills Start Date End Date Stat us None recorded. (No additional sig information) 12/27/2021 completed clindamycin 1 % topical gel APPLY A THIN LAYER TO THE AFFECTED AREA(S) BY TOPICAL ROUTE 2 TIMES PER DAY APPLY A THIN LAYER TO THE AFFECTED AREA(S) BY TOPICAL ROUTE 2 TIMES PER DAY 12/27/2021 completed Mirena 20 mcg/24 hours (7 yrs) 52 mg intrauterine device Take 1 device by intrauterine route. Take 1 device by intrauterine route. 12/27/2021 completed amoxicillin 500 mg capsule amoxicillin 500 mg capsule 12/27/2021 completed Problems Problem Status Onset Date Problem Type Date of Resoluti on Source Benign neoplasm of bone active 2013-08-05 ProblemAct [facility] Anxiety active 2017-08-26 ProblemAct [facility] Depressive disorder active [facility]Act [facility]
== END 2024-05-05 15:25 | disposition home or self-care (01) ==
PROVIDERS: PCP Family Medicine; Visit Provider Orthopaedic Surgery
DX: S83.511D Sprain of anterior cruciate ligament of right knee, subsequent encounter (principal); S83.282D Other tear of lateral meniscus, current injury, left knee, subsequent encounter
CPT/HCPCS: 99212

== ENCOUNTER → 2024-05-05 15:02 | Outpatient (BNVA) | payer OTHER, SELFPAY | PROVIDERS: PCP Family Medicine; Visit Provider Orthopaedic Surgery ==

== ENCOUNTER 2025-04-29 20:44 | Emergency (ER) | payer OTHER, SELFPAY ==
[2025-04-29 20:47] VITALS: BP 108/78; PULSE 83; RESP 18; TEMP 36.4; O2SAT 97; BMI 37.8
--- NOTE | 2025-04-29 20:50 | ED.WOUNDLAC ---
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 L hypothenar needle stick with butterfly hollow bore. Washed immediately. Related Data Home Medications ?Medication ?Instructions ?Recorded ?Confirmed levonorgestrel (Mirena) intrauterine 09/04/23 01/04/24 lamotrigine 25 mg tablet 50 mg PO DAILY 05/05/24 Previous Rx's ?Medication ?Instructions ?Recorded hydrochlorothiazide 25 mg tablet 25 mg PO QAM #30 tabs 03/20/24 amoxicillin 875 mg-potassium 1 tab PO BID #20 tabs 05/25/24 clavulanate 125 mg tablet bupropion HCl 75 mg tablet 75 mg PO BID 30 days #60 tabs 06/09/24 Allergies Allergy/AdvReac Type Severity Reaction Status Date / Time No Known Allergies Allergy Verified 04/29/25 20:49 [facility] Past Medical History Medical History (Updated 04/30/25 @ 00:00 by Livan Henriquez) No pertinent past medical history Surgical History (Updated 05/03/24 @ 11:14 by Laurie Barnett CMA) S/P ACL reconstruction (10/07/23) Social History Social History (Updated 01/04/24 @ 15:23 by Cecilia Francisco [facility]) Housing: Apartment Patient Tobacco Use Status: Current everyday Tobacco user Tobacco use type: Cigarette Cigarettes Per Day: 3 e-Cigarette/Vaping Use: Never Used Substance Use Type: Marijuana Advance Directives: No Advance Directives Information Provided: No service: No Current occupational status: employed 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 Vital Signs: Vital Signs: Last Vital Signs Temp 97.6 F 04/29/25 21:39 Pulse 83 04/29/25 21:39 Resp 18 04/29/25 21:39 BP 108/78 04/29/25 21:39 Pulse Ox 97 04/29/25 21:39 O2 Del Method Room Air 04/29/25 21:39 BMI result Body Mass Index 37.8 Course Course Course Narrative: This is a Rapid Medical Examination (RME) performed by Caron Link PA-C in triage. Full HPI, ROS, assessment and treatment plan per primary provider in the Main ED. 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 HIV/ hepatitis status of exposure source unknown however exposure source has remote hx of IVDU. Plan: Basic labs, HIV/hepatitis testing Medical Decision Making Medical Decision Making MDM Narrative: needle stick. Source pt: TD declined. Baseline viral labs. Update: 05-02: Source pt hep panel screen shows + HCV ab. 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 (source Pt: [facility]ails ED 45, F011/30/1979? MRN#? [id number] Lab Data 04/29/25 21:03 04/29/25 21:03 Labs: Lab Results 04/29/25 Range/Units 21:03 WBC 13.5 H (4.8-10.8) X10*3/uL RBC 5.78 H (4.20-5.50) X10*6/uL Hgb 15.0 (12.0-16.0) g/dl Hct 47.7 H (37.0-47.0) % MCV 82.5 (80.0-98.0) fL MCH 26.0 L (27.0-33.0) pg MCHC 31.4 (31.0-35.0) g/dl RDW 13.7 (11.0-16.0) % Plt Count 409 H (160-400) X10*3/uL MPV 9.6 (9.4-12.3) fL Immature Gran % (Auto) 0.4 (0.0-0.4) % Neut % (Auto) 68.8 (45-73) % Lymph % (Auto) 22.9 (20-40) % Nash % (Auto) 6.5 (2-11) % Eos % (Auto) 1.0 (0-4) % Baso % (Auto) 0.4 (0-2) % Lymph # (Auto) 3.1 (1.2-4.9) X10*3/uL Nash # (Auto) 0.9 (0.1-1.2) X10*3/uL Eos # (Auto) 0.1 (0.0-0.4) X10*3/uL Baso # (Auto) 0.1 (0.0-0.2) X10*3/uL Abs Immat Gran (auto) 0.05 H (0.00-0.03) X10*3/uL Absolute Neuts (auto) 9.3 H (2.0-8.3) x10*3/uL Absolute Nucleated RBC 0.000 (0.0-0.012) X10*3/uL Nucleated RBC % (auto) 0.0 (0.0-0.2) /100WBC Sodium 142 (135-145) mmol/L Potassium 3.9 (3.3-5.1) mmol/L Chloride 104 (96-108) mmol/L Carbon Dioxide 28 (22-29) mmol/L Anion Gap 14 (12-20) BUN 12 (9-16) mg/dL Creatinine 0.78 (0.5-1.4) mg/dL Estim Creat Clear Calc 113.5 Estimated GFR > 60 Random Glucose 90 (60-115) mg/dL Calcium 9.7 (8.4-10.2) mg/dL Total Bilirubin 0.4 (0.0-1.0) mg/dL AST 19 (5-31) U/L ALT 17 (0-31) U/L Alkaline Phosphatase 144 H (39-117) U/L Total Protein 7.2 (6.5-8.0) g/dL Albumin 4.5 (3.5-5.0) g/dL Beta HCG, Quant < 2 mIU/mL Hepatitis A IgM Ab Nonreactive (Nonreactive) Hep Bs Antigen Negative (Negative) Hep Bs Antibody NONREACTIVE (Nonreactive) Hep B Core Total Ab Nonreactive (Nonreactive) Hepatitis C Ab (EIA) Nonreactive (Nonreactive) HIV 1&2 Ab/P24 Ag 4thGn Nonreactive (Nonreactive) Discharge Plan Discharge Clinical Impression: Accidental hypodermic needlestick injury Patient Disposition: Home, Self-Care Instructions: Needle Stick Injuries (ED) Prescriptions: No Action bupropion HCl 75 mg tablet 75 mg PO BID 30 Days Qty: 60 1RF hydrochlorothiazide 25 mg tablet 25 mg PO QAM Qty: 30 0RF amoxicillin-pot clavulanate 875-125 mg tablet 1 tab PO BID Qty: 20 0RF lamotrigine 25 mg tablet 50 mg PO DAILY Mirena 21 mcg/24 hours (8 yrs) 52 mg intrauterine device intrauterine Interventions: ED Discharge Assessment Last Done: 04/29/25 21:39 Discharge Date/Time: 04/29/25 21:40 Print Language: Syrian
[2025-04-29 21:12] LABS: MANUAL DIFF FLAG NO
[2025-04-29 21:13] LABS: Hematocrit 47.7 % (37.0-47.0); Hemoglobin 15.0 g/dl (12.0-16.0); Imm Gran Abs Auto 0.05 X10*3/uL (0.00-0.03); Imm Gran Pct Auto 0.4 % (0.0-0.4); Lymphocytes Absolute Auto 3.1 X10*3/uL (1.2-4.9); Mean Corpuscular HGB Conc 31.4 g/dl (31.0-35.0); Mean Corpuscular Hemoglobin 26.0 pg (27.0-33.0); Mean Corpuscular Volume 82.5 fL (80.0-98.0); NRBC Abs Auto 0.000 X10*3/uL (0.0-0.012); NRBC Pct Auto 0.0 /100WBC (0.0-0.2); Platelet Count 409 X10*3/uL (160-400); Red Blood Count 5.78 X10*6/uL (4.20-5.50); White Blood Count 13.5 X10*3/uL (4.8-10.8)
--- OUTSIDE RECORDS SUMMARY | 2025-04-29 21:33 | XMS_ITS | Clinical Summary ---
Author Organization [facility] Address [address] [place] [address] Care Team Providers Care Diagnostic Medical Sonographer Name Role Phone Pcp, No Primary Care Provider Unavailabl e Allergies No known active allergies Medications * This document contains information received from the source organization and may not represent a complete record from that organization. levonorgestrel (MIRENA) 20 mcg/24hr IUD 1 each by Intrauterine route once. Active hydrOXYzine HCl (ATARAX) 25 MG tabletIndicatio ns:Anxiety and depression Take 1 tablet (25 mg total) by mouth 4 times daily (every 6 hours) as needed for anxiety. 30 tablet 1 9 Active buPROPion (WELLBUTRIN XL) 300 MG 24 hr tabletIndicatio ns:Anxiety and depression Take 1 tablet (300 mg total) by mouth every morning. Swallow whole; do not crush, chew, or divide. Do not start before December 21, 2018. 30 tablet 3 9 Active mupirocin (BACTROBAN) 2 % ointmentIndicat ions:Rash and other nonspecific skin eruption Apply topically 3 (three) times a day. 30 g 9 Active carbamide peroxide (DEBROX) 6.5 % otic solutionIndicat ions:Excessive cerumen in left ear canal Administer 5 drops into the left ear 2 (two) times a day. 15 mL 0 Active azithromycin (ZITHROMAX) 250 MG tabletIndicatio ns:Bronchitis Take 2 tablets by mouth on day 1 followed by 1 tablet by mouth daily on days 2 through 5. 6 tablet 1 Active predniSONE (DELTASONE) 20 MG tabletIndicatio ns:Bronchitis Take 2 tablets (40 mg total) by mouth daily. With food. 8 tablet 1 Active albuterol (PROVENTIL HFA; VENTOLIN HFA) 108 (90 Base) MCG/ACT inhalerIndicati ons:Bronchitis Inhale 2 puffs 4 times daily (every 6 hours) as needed for wheezing. 1 each 1 Active budesonide-form oterol (SYMBICORT) 160-4.5 MCG/ACT inhalerIndicati ons:Bronchitis Inhale 2 puffs 2 (two) times a day. 10.2 g 1 Active valACYclovir (VALTREX) 1000 MG tabletIndicatio ns:Cold sore Take 2 tablets (2,000 mg total) by mouth 2 (two) times a day. 4 tablet 2 Active penicillin v potassium (VEETID) 500 MG tabletIndicatio ns:Strep pharyngitis Take 1 tablet (500 mg total) by mouth 2 (two) times a day. 20 tablet 2 Active amoxicillin (AMOXIL) 500 MG capsuleIndicati ons:Strep pharyngitis Take 1 capsule (500 mg total) by mouth 2 (two) times a day. 14 capsule 2 Active neomycin-polymy fox-hydrocortis one (CORTISPORIN) 3.5-60352-3 otic suspensionIndic ations:Acute swimmer's ear of left side Administer 4 drops into the left ear 4 (four) times a day. 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 Overview (08/26/2017): Description : tibia and distal femur on MRI 07/2013 Resolved Problems Problem Noted Date Diagnosed Date Resolved Date Tear of medial cartilage or meniscus of knee, current 08/30/2013 08/26/2017 Overview (08/26/2017): Description : MRI 07/2013 Sprain and strain of cruciat e ligament of knee 08/30/2013 08/26/2017 Effusion of lower leg joint 08/30/2013 08/26/2017 Pain in joint, lower leg 08/30/2013 Immunizations Immunization Administration Dates Next Due DTaP 06/23/2000, 8,1996,1996,1996 HPV Quadrivalent 02/09/2013,11/08/2011, 9 Hepatitis A 02/09/2013,11/08/2011 Hepatitis B 1996,1996,1996 Hib 09/18/1997, 7,1996,1995 IPV 10/04/2001, 7,1996,1995 Influenza (AFLURIA/FLUZONE) Inactivated/Split Quadrivalent with Preservative IM 02/13/2009 Influenza Inactivated/Split Preservative Free IM 03/10/2018 Family History Medical History Relation Name Comments Suicidality Father Relation Name Status Comments Father Social History Tobacco Use Types Packs/Day Years Used Date Smoking Tobacco: Former Smokeless Tobacco: Never Alcohol Use Standard Drinks/Week Comments Yes 1 (1 standard drink = 0.6 oz pur e alcohol) Comments No Sex and Gender Information Value Date Recorded Sex Assigned at Not on file Legal Sex Female 12:45 PM EDT Gender Identity Not on file Sexual Orientation Not on file Last Filed Vital Signs Vital Sign Reading Time Taken Comments Blood Pressure 118/80 01/27/2022 10:08 AM EDT Pulse 75 01/27/2022 10:08 AM EDT Temperature 36.3 C (97.4 F) 01/27/2022 10:08 AM EDT Respiratory Rate 16 07/11/2019 1:48 PM EST Oxygen Saturation 99% 01/27/2022 10:08 AM EDT Inhaled Oxygen Concentration - - Weight 109 kg (240 lb) 01/27/2022 10:08 AM EDT Height 157.5 cm (5' 2 ) 07/11/2019 1:48 PM EST Body Mass Index 43.9 07/11/2019 1:48 PM EST Plan of Treatment Health Maintenance Due Date Last Done Comments Hepatitis C Virus Screening 1996 DTaP/Tdap/Td Vaccines (6 - Tdap) 2007 06/23/2000, 09/18/1997, 1996, Additional history exists HIV Screening 2009 Pap Smear (Ages 21-65) 12/26/2024 12/26/2021 Influenza Vaccine 12/30/2024 03/10/2018, 02/13/2009 COVID-19 Vaccine (2023- season) 2025 Hepatitis B Vaccines Completed 1996, 1996, 1996 HPV Vaccines Completed 02/09/2013, 01/2012, 01/08/2009 Pneumococcal Vaccine: Pediatric (0-5 Years) and At-Risk Patients (6 to 49 Years) Aged Out No longer eligible based on patient's age to complete this topic Procedures Procedure Name Priority Date/Time Associated Diagnosis Comments THINPREP PAP TEST (DRIER BELT CONVEYOR) WITH HPV REFLEX, GC/CT Routine 12/26/2021 12:00 AM EDT from Last 3 Months or Most Recently Relevant to Health Maintenance Results * ThinPrep Pap Test (Dry Molder) with HPV Reflex, GC/CT (12/26/2021 12:00 AM EDT) Report Report [facility] Comment: Final Gynecological Cytology Report ThinPrep Pap Test with HPV Reflex, GC/Chlamydia SPECIMEN ADEQUACY: SATISFACTORY FOR EVALUATION; ENDOCERVICAL/TRANSFORMATION ZONE COMPONENT PRESENT. INTERPRETATION: NEGATIVE FOR INTRAEPITHELIAL LESION OR MALIGNANCY. Electronically Signed: Shelby Joiner CT (ASCP) CLINICAL INFORMATION: LMP: NG Clinical History: RTN Specimen Source: Cervix, Endocervix CPT Codes: 21752 ICD Codes: Z12.4, Z11.3 Other 12/26/2021 12/27/2021 8:0 4 PM EDT Narrative [facility] - 12/30/2021 6:35 AM EDT MIRENA IUD CC: LO REY APRN, us Melanie Johnson MD LAB AMB PATH/CYTO ORDERABLES Fi nal Result [facility] [address] [place], [place] from Last 3 Months or Most Recently Relevant to Health Maintenance Insurance AETNA HMO/POS AETNA HMO/POS Care Teams Diagnostic Medical Sonographer Relationship Specialty Start Date End Date Pcp, No [address] [place] [address] PCP - General 08/22/22
--- OUTSIDE RECORDS SUMMARY | 2025-04-29 21:33 | XMS_ITS | Encounter Summary ---
Author Organization [facility] Address [address] [place] [address] Care Team Providers Care Cylinder Press Feeder Name Role Phone Radha Camargo APRN Primary Care Provider Radha Camargo APRN Unavailable [phone] Mamie Harris RN Unavailable Melanie Johnson MD Unavailable [phone] Pcp, No Primary Care Provider Unavailabl e Encounter Details Date Type Department Care Team (Late st Contact Info) Description 08/24/2017 Scanned Document [address] [place] [address] Provider, Generic Social History Tobacco Use Types Packs/Day Years Used Date Smoking Tobacco: Never Assessed Comments Unknown Sex and Gender Information Value Date Recorded Sex Assigned at Not on file Legal Sex Female 12:45 PM EDT Gender Identity Not on file Sexual Orientation Not on file documented as of this encounter Functional Status documented as of this encounter Plan of Treatment Not on file documented as of this encounter Visit Diagnoses Not on filedocumented in this encounter Care Teams Cylinder Press Feeder Relationship Specialty Start Date End Date Radha Camargo APRN [address] [address] PCP - General Family Medicine 08/24/17 08/21/22 Radha Camargo APRN [address] [address] PCP - [facility] Employee Attributed 01/31/20 04/30/21 Melanie Johnson MD [address] [place] [address] PCP - [facility] Employee Attributed 05/01/21 03/31/22 Pcp, No [address] [place] [address] PCP - General 08/22/22 Mamie Harris, RN [address] [facility] [address] [place] [address] [facility] Community Director Game 04/08/18 documented as of this encounter
--- OUTSIDE RECORDS SUMMARY | 2025-04-29 21:33 | XMS_ITS | Encounter Summary ---
Author Organization [facility] Address [address] [place] [address] Care Team Providers Care Select Banker Name Role Phone Radha Camargo APRN Primary Care Provider Radha Camargo APRN Unavailable [phone] Mamie Harris RN Unavailable Melanie Johnson MD Unavailable [phone] Pcp, No Primary Care Provider Unavailabl e Encounter Details Date Type Department Care Team (Late st Contact Info) Description 05/11/2018 Scanned Document [address] [place] [id number] Provider, Generic Social History Tobacco Use Types Packs/Day Years Used Date Smoking Tobacco: Some Days Smokeless Tobacco: Never Alcohol Use Standard Drinks/Week Comments Yes 1 (1 standard drink = 0.6 oz pur e alcohol) Comments No Sex and Gender Information Value Date Recorded Sex Assigned at Not on file Legal Sex Female 12:45 PM EDT Gender Identity Not on file Sexual Orientation Not on file documented as of this encounter Plan of Treatment Not on file documented as of this encounter Visit Diagnoses Not on filedocumented in this encounter Care Teams Select Banker Relationship Specialty Start Date End Date Radha Camargo APRN 100 [facility] [address] [place] [address] PCP - General Family Medicine 08/24/17 08/21/22 Radha Camargo APRN [address] [facility] [address] [place] [address] PCP - [facility] Employee Attributed 01/31/20 04/30/21 Melanie Johnson MD [address] [facility] [address] [place] [address] PCP - [facility] Employee Attributed 05/01/21 03/31/22 Pcp, No [address] [place] [address] PCP - General 08/22/22 Mamie Harris, ISAIAH [address] [facility] [address] [place], [place] [id number] [facility] Community Security Solutions Architect 04/08/18 documented as of this encounter
--- OUTSIDE RECORDS SUMMARY | 2025-04-29 21:33 | XMS_ITS ---
Author Name [facility] Organization Unknown History of Medication Use Medication Directions Dispensed Refills Start Date End Date Stat us None recorded. (No additional sig information) completed amoxicillin 500 mg capsule amoxicillin 500 mg capsule completed clindamycin 1 % topical gel APPLY A THIN LAYER TO THE AFFECTED AREA(S) BY TOPICAL ROUTE 2 TIMES PER DAY APPLY A THIN LAYER TO THE AFFECTED AREA(S) BY TOPICAL ROUTE 2 TIMES PER DAY completed Mirena 20 mcg/24 hours (7 yrs) 52 mg intrauterine device Take 1 device by intrauterine route. Take 1 device by intrauterine route. completed Problems Problem Status Onset Date Problem Type Date of Resoluti on Source Benign neoplasm of bone active 2013-08-05 ProblemAct [facility] Anxiety active 2017-08-26 ProblemAct [facility] Depressive disorder active ProblemAct [facility] Encounters Encounter Type Encounter Reason Primary Diagnosis Location Date Ambulatory Swimmer's ear, l eft ear [facility] 01/27/2022 Ambulatory [facility] 12/26/2021 Ambulatory Streptococcal pharyngitis [facility] 12/24/2021 Ambulatory Streptococcal pharyngitis [facility] 10/21/2021 Ambulatory Herpesviral vesi cular dermatitis [facility] 10/17/2021 Care Team Organization Name Specialty Phone Email Start Date End Da te [facility] Radha Camargo Primary Care 01/27/2022 [facility] 12/31/2021 [facility] 12/26/2021 12/26/2021 [facility] Radha Camargo NP Primary Care 10/21/2021 022
[2025-04-29 21:34] LABS: Alanine Aminotransferase 17 U/L (0-31); Albumin Level 4.5 g/dL (3.5-5.0); Alkaline Phosphatase 144 U/L (39-117); Anion Gap 14 (12-20); Aspartate Amino Transferase 19 U/L (5-31); Blood Urea Nitrogen 12 mg/dL (9-16); Calcium 9.7 mg/dL (8.4-10.2); Carbon Dioxide 28 mmol/L (22-29); Chloride 104 mmol/L (96-108); Creatinine Clr Calc Pharmacy 113.5; Estimated Glomerular Filt Rate > 60; Potassium 3.9 mmol/L (3.3-5.1); Sodium 142 mmol/L (135-145); Total Protein 7.2 g/dL (6.5-8.0)
[2025-04-29 21:39] VITALS: BP 108/78; PULSE 83; RESP 18; TEMP 36.4; O2SAT 97
[2025-05-01 05:06] LABS: HBS Num1 2.42 mIU/mL (0-7.99); HBc Num1 0.04 S/CO (0.00-0.79); HBsAGNum1 0.42 S/CO (0.00-0.99); HIV Num 1 0.21 S/CO (0.00-0.99); Hepatitis A Antibody IgM 0.14 Index (0-0.79); Hepatitis B Surface Antigen Negative (Negative); ~HepC Num1 0.11 S/CO (0.00-0.79); ~Hepatitis A Antibody IgM Nonreactive (Nonreactive); ~Hepatitis B Surface Antibody NONREACTIVE (Nonreactive); ~Hepatitis C Antibody Nonreactive (Nonreactive)
== END 2025-04-29 21:40 | disposition home or self-care (01) ==
LOC: HO.ED 21:31
PROVIDERS: Physician Assistant Medical; Emergency Provider Emergency Medicine; PCP Internal Medicine
DX: S61.432A Puncture wound without foreign body of left hand, initial encounter (principal); W46.0XXA Contact with hypodermic needle, initial encounter; Y93.F9 Activity, other caregiving; Y92.238 Other place in hospital as the place of occurrence of the external cause; Y99.0 Civilian activity done for income or pay
CPT/HCPCS: 36415; 80053; 84702; 85025; 86704; 86706; 86709; 86803; 87340; 87389; 99283

== ENCOUNTER → 2025-05-03 12:09 | Outpatient (BNVA) | payer OTHER, SELFPAY | PROVIDERS: PCP Internal Medicine; Visit Provider Emergency Medicine | DX: Z13.89 Encounter for screening for other disorder (principal) | CPT/HCPCS: 99202 ==